=== PATIENT | male | born 1965 | race Caucasian/White ===

== ENCOUNTER 2020-09-20 15:01 | Outpatient (CLI) | payer BC | END 2020-09-20 15:02 | disposition home or self-care (01) | LOC: COV 15:01 | PROVIDERS: ATTEND Family Medicine | DX: R50.9 Fever, unspecified (principal); R07.0 Pain in throat; R09.81 Nasal congestion; J34.89 Other specified disorders of nose and nasal sinuses; R11.2 Nausea with vomiting, unspecified; Z20.822 Contact with and (suspected) exposure to COVID-19 ==

== ENCOUNTER 2021-07-19 17:07 | Emergency (ER) | payer BC ==
[2021-07-19 17:41] LABS: BASOPHILS # (AUTO) 0.1 10^3/uL (0.0-0.1); BASOPHILS % (AUTO) 0.9 %; EOSINOPHILS # (AUTO) 0.2 10^3/uL (0.0-0.7); HCT - HEMATOCRIT 32.9 % (42.0-52.0); HGB - HEMOGLOBIN 11.6 g/dL (14.0-18.0); LYMPHOCYTES # (AUTO) 1.8 10^3/uL (1.5-3.5); LYMPHOCYTES % (AUTO) 11.6 %; MEAN CORPUSCULAR HEMOGLOBIN 37.5 pg (27.0-31.0); MEAN CORPUSCULAR HGB CONC 35.3 g/dL (32.0-36.0); MEAN CORPUSCULAR VOLUME 106.5 fL (80.0-94.0); MEAN PLATELET VOLUME 10.9 fL (7.4-11.4); MONOCYTES # (AUTO) 0.8 10^3/uL (0.0-1.0); MONOCYTES % (AUTO) 5.4 %; NEUTROPHILS # (AUTO) 12.5 10^3/uL (1.5-6.6); NEUTROPHILS % (AUTO) 80.7 %; PLT - PLATELET COUNT 270 10^3/uL (130-450); RED BLOOD COUNT 3.09 10^6/uL (4.70-6.10); RED CELL DISTRIBUTION WIDTH 14.1 % (12.0-15.0); WHITE BLOOD COUNT 15.5 x10^3/uL (4.8-10.8)
[2021-07-19 17:43] LABS: GLUCOSE, URINE (UA) NEGATIVE (NEGATIVE); KETONES,URINE (UA) TRACE mg/dL (NEGATIVE); LEUKOCYTE ESTERASE, URINE NEGATIVE (NEGATIVE); NITRITE,URINE POSITIVE (NEGATIVE); OCCULT BLOOD,URINE TRACE-INTA (NEGATIVE); PH,URINE 6.5 PH (5.0-7.5); PROTEIN,URINE 100 mg/dL (NEGATIVE); UROBILINOGEN,URINE 4 E.U./dL (NORMAL)
[2021-07-19] MEDS: SODIUM CHLORIDE 0.9% 1,000 ML IV STA (17:50)
[2021-07-19 17:52] LABS: CALCIUM 8.3 mg/dL (8.5-10.3); CREATININE 2.7 mg/dL (0.6-1.2); MAGNESIUM 1.6 mg/dL (1.7-2.8); PHOSPHORUS 3.4 mg/dL (2.5-4.6); POTASSIUM 2.7 mmol/L (3.5-5.0)
[2021-07-19 17:54] LABS: BACTERIA,URINE Rare /HPF (None Seen); BILIRUBIN,URINE LARGE (NEGATIVE); CLARITY,URINE CLOUDY (CLEAR); ICTOTEST,URINE POSITIVE; RBC,URINE 0-5 /HPF (0-5); SQUAMOUS EPITHELIAL CELL,UR RARE Squamous (<= Few)
[2021-07-19 17:55] LABS: AMORPHOUS SEDIMENT,UR Rare /LPF
--- NOTE | 2021-07-19 18:07 | ED Physician Documentation ---
History of Present Illness - Stated complaint Stated Complaint: DEHYDRATION,HEMACHROMATOSIS - Chief complaint Chief Complaint: General - History obtained from History obtained from: Patient - Additonal information Additional information: 55-year-old gentleman with relatively recent diagnosis of hereditary hemochromatosis about a month ago. Prior to that he was a drinker but quit a month ago. That said he says he was not drinking significantly, maybe 1 drink a day. No history of liver troubles. He was sent in by his oncologist because they did outpatient laboratories today showing a creatinine of 2.8. It was 1.9 earlier this month. 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 He states in the last month he has had an ultrasound of his liver and an MRI of his liver showing hemochromatosis. He has no history of cirrhosis. Review of Systems Ten Systems: 10 systems reviewed and negative Constitutional: reports: Reviewed and negative Eyes: reports: Reviewed and negative Ears: reports: Reviewed and negative Nose: reports: Reviewed and negative Throat: reports: Reviewed and negative PD PAST MEDICAL HISTORY - Past Medical History Past Medical History: Yes Cardiovascular: Hypertension GI: Cirrhosis Musculoskeletal: Other Other Past Medical History: bilat leg fx/ hemachromatosis - Past Surgical History Past Surgical History: No - Present Medications Home Medications: Ambulatory Orders Medication Instructions Recorded Confirmed Furosemide [Lasix] 40 mg PO DAILY 07/19/21 07/19/21 Gabapentin [Neurontin] 100 mg PO TID 07/19/21 07/19/21 Omeprazole Magnesium 20 mg PO DAILY 07/19/21 07/19/21 Spironolactone [Aldactone] 100 mg PO DAILY 07/19/21 07/19/21 - Allergies Allergies/Adverse Reactions: Allergies Allergy/AdvReac Type Severity Reaction Status Date / Time No Known Drug Allergies Allergy Verified 07/19/21 17:11 - Social History Does the pt smoke?: No Smoking Status: Never smoker PD ED PE NORMAL - Vitals Vital signs reviewed: Yes - General General: Alert and oriented X 3, No acute distress, Other (He is icteric but no distress.) - HEENT HEENT: PERRL (Icterus), Pharynx benign - Neck Neck: Supple, no meningeal sign, No bony TTP - Cardiac Cardiac: Other (Tachycardic but regular without murmur) - Respiratory Respiratory: No respiratory distress, Clear bilaterally - Abdomen Abdomen: Non tender, Other (Not quite tense ascites) - Back Back: No CVA TTP, No spinal TTP - Derm Derm: Normal color, Warm and dry - Extremities Extremities: Other (2+ lower extremity pitting pedal edema) - Neuro Neuro: Alert and oriented X 3, Normal speech Results - Vitals Vitals: Vital Signs - 24 hr 07/19/21 07/19/21 07/19/21 17:11 17:44 17:50 Temperature 36.2 C L Heart Rate 112 H 104 H Heart Rate [ 112 H Sitting] Heart Rate [ 114 H Standing] Heart Rate [ 107 H Supine] Respiratory 20 22 Rate Blood Pressure 81/51 L 74/45 L Blood Pressure 83/52 L [Sitting] Blood Pressure 74/45 L [Standing] Blood Pressure 84/58 L [Supine] O2 Saturation 98 92 07/19/21 07/19/21 07/19/21 18:17 19:12 19:21 Temperature Heart Rate 100 92 Heart Rate [ Sitting] Heart Rate [ Standing] Heart Rate [ Supine] Respiratory 19 17 17 Rate Blood Pressure 98/64 Blood Pressure [Sitting] Blood Pressure [Standing] Blood Pressure [Supine] O2 Saturation 95 97 Oxygen O2 Source Room air - Labs Labs: Laboratory Tests 07/19/21 07/19/21 07/19/21 17:30 17:30 17:30 WBC 15.5 H RBC 3.09 L Hgb 11.6 L Hct 32.9 L MCV 106.5 H MCH 37.5 H MCHC 35.3 RDW 14.1 Plt Count 270 MPV 10.9 Neut # (Auto) 12.5 H Lymph # (Auto) 1.8 Sutter # (Auto) 0.8 Eos # (Auto) 0.2 Baso # (Auto) 0.1 Absolute Nucleated RBC 0.00 Nucleated RBC % 0.0 PT INR Sodium 132 L Potassium 2.7 L Chloride 93 L Carbon Dioxide 23 Anion Gap 16.0 H BUN 22 H Creatinine 2.7 H Estimated GFR (MDRD) 25 L Glucose 130 H Calcium 8.3 L Phosphorus 3.4 Magnesium 1.6 L Total Bilirubin AST ALT Alkaline Phosphatase Total Protein Albumin Globulin Albumin/Globulin Ratio Urine Color BROWN Urine Clarity CLOUDY Urine pH 6.5 Ur Specific [place] 1.025 Urine Protein 100 H Urine Glucose (UA) NEGATIVE Urine Ketones TRACE Urine Occult Blood TRACE-INTA Urine Nitrite POSITIVE H Urine Bilirubin LARGE H Urine Urobilinogen 4 H Ur Leukocyte Esterase NEGATIVE Urine RBC 0-5 Urine WBC 4-5 Ur Squamous Epith Cells RARE Squamous Amorphous Sediment Rare Urine Bacteria Rare Urine Casts 0-2 Granular Casts Ur Microscopic Review INDICATED Urine Culture Comments INDICATED 07/19/21 07/19/21 18:18 18:29 WBC RBC Hgb Hct MCV MCH MCHC RDW Plt Count MPV Neut # (Auto) Lymph # (Auto) Sutter # (Auto) Eos # (Auto) Baso # (Auto) Absolute Nucleated RBC Nucleated RBC % PT 15.7 H INR 1.4 H Sodium 136 Potassium 2.8 L Chloride 97 L Carbon Dioxide 24 Anion Gap 15.0 H BUN 21 H Creatinine 2.6 H Estimated GFR (MDRD) 26 L Glucose 114 H Calcium 7.8 L Phosphorus Magnesium Total Bilirubin 6.5 H AST 59 H ALT 15 Alkaline Phosphatase 218 H Total Protein 6.8 Albumin 2.3 L Globulin 4.5 H Albumin/Globulin Ratio 0.5 L Urine Color Urine Clarity Urine pH Ur Specific [place] Urine Protein Urine Glucose (UA) Urine Ketones Urine Occult Blood Urine Nitrite Urine Bilirubin Urine Urobilinogen Ur Leukocyte Esterase Urine RBC Urine WBC Ur Squamous Epith Cells Amorphous Sediment Urine Bacteria Urine Casts Ur Microscopic Review Urine Culture Comments PD MEDICAL DECISION MAKING - ED course ED course: Limited bedside ultrasound of the abdomen shows significant ascites 55-year-old gentleman with worsening renal function sent here for evaluation IV fluids by his oncologist. Unfortunately his work-up here has physical exam findings consistent with cirrhosis and liver failure and this is corroborated on labs. This is suggestive unfortunately of hepatorenal syndrome. I discussed with with the patient. His meld score is 30 points. And this was also discussed with his oncologist by phone who will see him tomorrow and arrange for urgent hepatology referral. Departure - Departure Disposition: 01 Home, Self Care Clinical Impression: Renal failure Qualifiers: Renal failure chronicity: acute Acute renal failure type: unspecified Qualified Code(s): N17.9 - Acute kidney failure, unspecified Cirrhosis Qualifiers: Hepatic cirrhosis type: unspecified hepatic cirrhosis Ascites presence: with ascites Qualified Code(s): K74.60 - Unspecified cirrhosis of liver; R18.8 - Other ascites Condition: Good Record reviewed to determine appropriate education?: Yes Instructions: Cirrhosis Liver Dc Comments: As Discussed, unfortunately looks like you are developing hepatorenal syndrome with your cirrhosis related to hemochromatosis. I have spoken with Dr. De who plans to see you tomorrow and arrange for urgent hepatology referral. Return if worse.
[2021-07-19] MEDS: POTASSIUM CHLORIDE 20 MEQ TABLET PO STA (18:15)
[2021-07-19] MEDS: MAGNESIUM OXIDE 400 MG TABLET PO STA (18:15)
[2021-07-19 18:33] LABS: INR 1.4 (0.8-1.2); PT - PROTHROMBIN TIME 15.7 secs (9.9-12.6)
[2021-07-19 18:47] LABS: ALBUMIN 2.3 g/dL (3.2-5.5); ALBUMIN/GLOBULIN RATIO 0.5 (1.0-2.2); BILIRUBIN,TOTAL 6.5 mg/dL (0.2-1.0); CALCIUM 7.8 mg/dL (8.5-10.3); CREATININE 2.6 mg/dL (0.6-1.2); POTASSIUM 2.8 mmol/L (3.5-5.0); TOTAL PROTEIN 6.8 g/dL (6.7-8.2)
[2021-07-19 19:40] VITALS: BP 97/67
--- NOTE | 2021-07-19 20:45 | Ultrasound Report ---
PROCEDURE: Retroperitoneal INDICATIONS: renal failure TECHNIQUE: Real-time scanning was performed of the retroperitoneal organs, with image documentation. COMPARISON: None. FINDINGS: Kidneys: Kidneys are normal in size. Right kidney measures 10.7 cm long; left kidney measures 11.5 cm long. Right renal cortical thickness is 1.9 cm; left renal cortical thickness is 1.9 cm. No wili d masses, hydronephrosis. Mild appearance of increased echogenicity within the medullary parenchyma. Bladder: Bladder is nondistended limiting evaluation. Miscellaneous: Perihepatic fluid as well as moderate abdominal ascites is present. IMPRESSION: Mild appearance of increased echogenicity within the renal medullary parenchyma possibly related to n ephrocalcinosis. Abdominal ascites. Reviewed by: Mary Vee MD on 07/19/2021 8:44 PM PST Approved by: Mary Vee MD on 07/19/2021 8:44 PM PST Station ID: [id number]
== END 2021-07-19 19:47 | disposition home or self-care (01) ==
LOC: ED 17:07
DX: N17.9 Acute kidney failure, unspecified (principal); K74.60 Unspecified cirrhosis of liver; R18.8 Other ascites; K72.90 Hepatic failure, unspecified without coma; E83.110 Hereditary hemochromatosis; I10 Essential (primary) hypertension
CPT/HCPCS: 36415; 76770; 80048; 80053; 81001; 83735; 84100; 85025; 85610; 87086; 96360; 99283; 99284; A9270; 81003